=== PATIENT | female | born 1980 | race Hispanic/Latino ===

== ENCOUNTER 2017-10-21 17:38 | Inpatient (IN) | payer SELFPAY ==
[~2017-10-21] VITALS: Ht 160 cm; Wt 57.2 kg
[2017-10-21 18:08] LABS: BASOPHILS % (AUTO) 0.6 % (0.0-5.0); EOSINOPHILS % (AUTO) 0.4 % (0.0-8.0); HEMATOCRIT 27.7 % (36-48); MEAN CORPUSCULAR HEMOGLOBIN 19.1 pg (27.0-33.0); MEAN CORPUSCULAR HGB CONC 30.4 g/dL (32.0-36.0); MEAN CORPUSCULAR VOLUME 62.8 fL (79-99); MONOCYTES % (AUTO) 2.9 % (3.0-13.0); NEUTROPHILS % (AUTO) 84.1 % (40.0-77.0); PLATELET COUNT (AUTO) 587 K/uL (130-400); RED BLOOD CELL COUNT(AUTO) 4.41 MIL/uL (4.00-5.50); RED CELL DISTRIBUTION WIDTH 22.2 % (11.0-15.5)
[2017-10-21 18:29] LABS: APPEARANCE,URINE Cloudy (CLEAR); BILIRUBIN,URINE Negative (NEGATIVE); COLOR,URINE Yellow (YELLOW); GLUCOSE, URINE (UA) Negative (NEGATIVE); KETONES,URINE Negative (NEGATIVE); LEUKOCYTE ESTERASE ,URINE Moderate (NEGATIVE); NITRATE,URINE Negative (NEGATIVE); OCCULT BLOOD,URINE Small (NEGATIVE); PROTEIN,URINE POS 1+ (NEGATIVE); UROBILINOGEN,URINE 0.2 mg/dL (0.2-1.0)
[2017-10-21 18:34] LABS: ALANINE AMINOTRANSFERASE 31 U/L (12-78); ALBUMIN 3.9 g/dL (3.5-5.0); ASPARTATE AMINOTRANSFERASE 45 U/L (10-37); BILIRUBIN,TOTAL 0.3 mg/dL (0.2-1.0); CARBON DIOXIDE 11 mmol/L (21-32); CHLORIDE 108 mmol/L (101-111); CREATININE 1.4 mg/dL (0.5-1.5); GLOMERULAR FILTR. RATE CALC 45 mL/min (>60); GLUCOSE,RANDOM 193 mg/dL (70-105); SODIUM SERUM 138 mmol/L (136-145); TOTAL PROTEIN, SERUM 7.8 g/dL (6.0-8.3); UREA NITROGEN, BLOOD 14 mg/dL (7-18)
[2017-10-21 18:36] LABS: AMPHET/METH SCREEN,URINE NEGATIVE (NEGATIVE); BARBITURATE SCREEN, URINE NEGATIVE (NEGATIVE); BENZODIAZEPINES SCREEN,URINE NEGATIVE (NEGATIVE); CANNABINOID SCREEN,URINE NEGATIVE (NEGATIVE); COCAINE SCREEN,URINE NEGATIVE (NEGATIVE); OPIATE SCREEN,URINE NEGATIVE (NEGATIVE); PHENCYCLIDINE SCREEN,URINE NEGATIVE (NEGATIVE)
[2017-10-21 18:39] LABS: POTASSIUM < 1.5 mmol/L (3.5-5.1)
[2017-10-21 18:42] LABS: BACTERIA,URINE Many /HPF (None Seen); RBC,URINE 0-1 /HPF (0-1); SQUAMOUS EPITHELIAL CELL,UR 0-2 /LPF (0-2); TRANSITIONAL EPI CELLS,URINE Rare /LPF (None Seen)
[2017-10-21] MEDS ORDERED: POTASSIUM BICARB/CIT AC 25 MEQ TABLET.EFF ONE (18:42)
[2017-10-21] MEDS ORDERED: POTASSIUM CHLORIDE 20MEQ/100ML 100 ML IV ONE (18:43)
[2017-10-21] MEDS ORDERED: LIDOCAINE HCL-MPF 1% 2ML VIAL ONE (18:55)
[2017-10-21 21:37] VITALS: BP 129/88
[2017-10-21 23:56] VITALS: BP 141/85
[2017-10-22] MEDS ORDERED: ACETAMINOPHEN 325 MG TAB PO PRN (00:15)
[2017-10-22] MEDS ORDERED: HYDRALAZINE HCL 20 MG/ML VIAL IV PRN (00:15)
[2017-10-22] MEDS ORDERED: ONDANSETRON HCL 4 MG/2 ML VIAL IV PRN (00:15)
[2017-10-22 03:52] VITALS: BP 128/73
[2017-10-22 05:25] LABS: HEMATOCRIT 26.3 % (36-48); MEAN CORPUSCULAR HEMOGLOBIN 19.4 pg (27.0-33.0); MEAN CORPUSCULAR HGB CONC 30.9 g/dL (32.0-36.0); MEAN CORPUSCULAR VOLUME 62.7 fL (79-99); PLATELET COUNT (AUTO) 455 K/uL (130-400); RED CELL DISTRIBUTION WIDTH 22.5 % (11.0-15.5); WHITE BLOOD COUNT (AUTO) 13.8 K/uL (4.8-10.8)
[2017-10-22 05:43] LABS: ALBUMIN 3.5 g/dL (3.5-5.0); BILIRUBIN,TOTAL 0.3 mg/dL (0.2-1.0); CREATININE 1.1 mg/dL (0.5-1.5); THYROID STIMULATING HORMONE 0.17 uIU/mL (0.36-3.74); TOTAL PROTEIN, SERUM 6.9 g/dL (6.0-8.3)
[2017-10-22 05:54] LABS: POTASSIUM 1.6 mmol/L (3.5-5.1)
[2017-10-22 06:06] LABS: LYMPHOCYTES % (MANUAL) 18 % (22-44); MAN.DIFF COMMENT-IMPRESSION MANUAL DIFFERENTIAL; MONOCYTES % (MANUAL) 2 % (2-9); REACTIVE LYMPHOCYTES 1 % (0-0); SEGMENTED NEUTROPHILS % 79 % (40-70)
[2017-10-22 06:07] LABS: PLATELET MORPHOLOGY COMMENT SLIGHT INCREASED
[2017-10-22] MEDS: POTASSIUM CHLORIDE 20MEQ/100ML 100 ML IV PRN ×2 (06:56→12:24)
[2017-10-22 07:00] VITALS: BP 133/83
[2017-10-22] MEDS ORDERED: VANCOMYCIN 1GM+NS 250ML 250 ML IV SCH (09:00)
[2017-10-22] MEDS ORDERED: CEFTRIAXONE 1GM/D5W 50ML 50 ML IV SCH (09:00)
[2017-10-22] MEDS: FAMOTIDINE 20MG TAB 20 MG TAB PO SCH ×2 (10:08→21:13)
[2017-10-22] MEDS: SODIUM CHLORIDE 0.9% 1000ML 1,000 ML IV SCH ×2 (10:08→20:08)
[2017-10-22] MEDS: CEFTRIAXONE SODIUM 1 GM IVP SCH ×2 (10:09→21:13)
[2017-10-22] MEDS: ENOXAPARIN SODIUM 30 MG/0.3 ML SQ SCH (10:10)
[2017-10-22 11:00] VITALS: BP 139/88
[2017-10-22] MEDS: POTASSIUM CHLORIDE 20 MEQ ERTAB PO PRN ×4 (12:24→23:39)
[2017-10-22] MEDS: LIDOCAINE HCL-MPF 1% 2ML VIAL IVP PRN (12:25)
[2017-10-22 16:00] VITALS: BP 125/80
[2017-10-22 20:14] VITALS: BP 130/85
[2017-10-22] MEDS: POTASSIUM CHLORIDE 10% ELIXIR 20 MEQ/15 ML UDCUP PO PRN (21:35)
[2017-10-23 00:07] VITALS: BP 148/90
[2017-10-23] MEDS: POTASSIUM CHLORIDE 20 MEQ ERTAB PO PRN ×6 (02:31→16:19)
[2017-10-23 03:50] VITALS: BP 142/100
[2017-10-23 04:25] LABS: BASOPHILS % (AUTO) 0.6 % (0.0-5.0); EOSINOPHILS % (AUTO) 0.2 % (0.0-8.0); HEMATOCRIT 24.2 % (36-48); LYMPHOCYTES % (AUTO) 18.3 % (21.0-51.0); MEAN CORPUSCULAR HEMOGLOBIN 19.8 pg (27.0-33.0); MEAN CORPUSCULAR HGB CONC 31.8 g/dL (32.0-36.0); MEAN CORPUSCULAR VOLUME 62.3 fL (79-99); MONOCYTES % (AUTO) 3.7 % (3.0-13.0); NEUTROPHILS % (AUTO) 77.2 % (40.0-77.0); PLATELET COUNT (AUTO) 438 K/uL (130-400); RED BLOOD CELL COUNT(AUTO) 3.88 MIL/uL (4.00-5.50); RED CELL DISTRIBUTION WIDTH 22.3 % (11.0-15.5); WHITE BLOOD COUNT (AUTO) 10.3 K/uL (4.8-10.8)
[2017-10-23 04:42] LABS: ALBUMIN 2.9 g/dL (3.5-5.0); BILIRUBIN,TOTAL 0.2 mg/dL (0.2-1.0); CREATININE 0.7 mg/dL (0.5-1.5); MAGNESIUM 1.9 mg/dL (1.80-2.40); THYROID STIMULATING HORMONE 0.33 uIU/mL (0.36-3.74); TOTAL PROTEIN, SERUM 6.1 g/dL (6.0-8.3)
[2017-10-23 04:48] LABS: POTASSIUM 1.8 mmol/L (3.5-5.1)
[2017-10-23] MEDS: SODIUM CHLORIDE 0.9% 1000ML 1,000 ML IV SCH ×2 (06:08→16:08)
[2017-10-23 07:00] VITALS: BP 141/88
[2017-10-23] MEDS: FAMOTIDINE 20MG TAB 20 MG TAB PO SCH ×2 (08:54→21:10)
[2017-10-23] MEDS: CEFTRIAXONE SODIUM 1 GM IVP SCH ×2 (08:54→21:09)
[2017-10-23] MEDS: ENOXAPARIN SODIUM 30 MG/0.3 ML SQ SCH (09:02)
[2017-10-23] MEDS: LIDOCAINE HCL-MPF 1% 2ML VIAL IVP PRN ×2 (09:48→13:38)
[2017-10-23] MEDS: POTASSIUM CHLORIDE 20MEQ/100ML 100 ML IV PRN ×2 (09:48→13:38)
[2017-10-23 11:00] VITALS: BP 130/75
[2017-10-23 16:00] VITALS: BP 141/70
[2017-10-23 19:36] VITALS: BP 148/87
[2017-10-24] VITALS (7 sets, daily range): BP systolic 121–156; BP diastolic 82–97
[2017-10-24] MEDS: SODIUM CHLORIDE 0.9% 1000ML 1,000 ML IV SCH ×3 (02:08→23:37)
[2017-10-24 03:08] LABS: POTASSIUM,URINE RANDOM 20 mmol/L (25-125); SODIUM,URINE RANDOM 102 mmol/l (40-220)
[2017-10-24 03:16] LABS: AMPHET/METH SCREEN,URINE NEGATIVE (NEGATIVE); BARBITURATE SCREEN, URINE NEGATIVE (NEGATIVE); BENZODIAZEPINES SCREEN,URINE NEGATIVE (NEGATIVE); CANNABINOID SCREEN,URINE NEGATIVE (NEGATIVE); COCAINE SCREEN,URINE NEGATIVE (NEGATIVE); OPIATE SCREEN,URINE NEGATIVE (NEGATIVE); PHENCYCLIDINE SCREEN,URINE NEGATIVE (NEGATIVE)
[2017-10-24 04:34] LABS: CREATININE 0.8 mg/dL (0.5-1.5); MAGNESIUM 1.6 mg/dL (1.80-2.40)
[2017-10-24 04:37] LABS: POTASSIUM 1.9 mmol/L (3.5-5.1)
[2017-10-24] MEDS: POTASSIUM CHLORIDE 20 MEQ ERTAB PO PRN ×4 (05:23→15:29)
[2017-10-24] MEDS: CEFTRIAXONE SODIUM 1 GM IVP SCH ×2 (09:08→20:33)
[2017-10-24] MEDS: FERROUS SULFATE 325 MG TABLET.DR PO SCH ×2 (09:09→20:34)
[2017-10-24] MEDS: FAMOTIDINE 20MG TAB 20 MG TAB PO SCH ×2 (09:09→20:34)
[2017-10-24] MEDS: MULTIVITAMIN TABLET PO SCH (09:09)
[2017-10-24] MEDS: ENOXAPARIN SODIUM 30 MG/0.3 ML SQ SCH (09:10)
[2017-10-24] MEDS: POTASSIUM CHLORIDE 20MEQ/100ML 100 ML IV PRN ×2 (12:36→15:35)
[2017-10-24] MEDS: LIDOCAINE HCL-MPF 1% 2ML VIAL IVP PRN ×2 (12:37→15:28)
[2017-10-24] MEDS ORDERED: MAGNESIUM 2GM PREMIX 50ML 50 ML IV SCH (14:45)
[2017-10-24] MEDS: POTASSIUM BICARB/CIT AC 25 MEQ TABLET.EFF PO SCH ×2 (16:18→21:37)
[2017-10-25] VITALS (7 sets, daily range): BP systolic 119–135; BP diastolic 75–95
[2017-10-25 04:27] LABS: HEMATOCRIT 22.8 % (36-48); MEAN CORPUSCULAR HEMOGLOBIN 19.5 pg (27.0-33.0); MEAN CORPUSCULAR HGB CONC 31.6 g/dL (32.0-36.0); MEAN CORPUSCULAR VOLUME 61.7 fL (79-99); PLATELET COUNT (AUTO) 481 K/uL (130-400); RED CELL DISTRIBUTION WIDTH 22.6 % (11.0-15.5); WHITE BLOOD COUNT (AUTO) 8.9 K/uL (4.8-10.8)
[2017-10-25 04:51] LABS: LYMPHOCYTES % (MANUAL) 17 % (22-44); MONOCYTES % (MANUAL) 2 % (2-9); SEGMENTED NEUTROPHILS % 81 % (40-70)
[2017-10-25 04:52] LABS: MAN.DIFF COMMENT-IMPRESSION MANUAL DIFFERENTIAL
[2017-10-25 04:53] LABS: PLATELET MORPHOLOGY COMMENT INCREASED
[2017-10-25 04:55] LABS: ALBUMIN 2.9 g/dL (3.5-5.0); BILIRUBIN,TOTAL 0.2 mg/dL (0.2-1.0); CREATININE 0.7 mg/dL (0.5-1.5); TOTAL PROTEIN, SERUM 6.2 g/dL (6.0-8.3)
[2017-10-25 05:02] LABS: POTASSIUM 2.3 mmol/L (3.5-5.1)
[2017-10-25] MEDS: POTASSIUM CHLORIDE 20MEQ/100ML 100 ML IV PRN ×3 (05:17→10:15)
[2017-10-25] MEDS: LIDOCAINE HCL-MPF 1% 2ML VIAL IVP PRN ×3 (05:18→10:15)
[2017-10-25] MEDS: POTASSIUM CHLORIDE 20 MEQ ERTAB PO PRN ×3 (05:18→15:57)
[2017-10-25] MEDS: SODIUM CHLORIDE 0.9% 1000ML 1,000 ML IV SCH ×2 (08:08→18:08)
[2017-10-25] MEDS: FAMOTIDINE 20MG TAB 20 MG TAB PO SCH ×2 (10:15→20:56)
[2017-10-25] MEDS: MULTIVITAMIN TABLET PO SCH (10:15)
[2017-10-25] MEDS: POTASSIUM BICARB/CIT AC 25 MEQ TABLET.EFF PO SCH ×3 (10:15→20:56)
[2017-10-25] MEDS: FERROUS SULFATE 325 MG TABLET.DR PO SCH ×2 (10:15→20:56)
[2017-10-25] MEDS: POTASSIUM CHLORIDE 10% ELIXIR 20 MEQ/15 ML UDCUP PO PRN (10:16)
[2017-10-25] MEDS ORDERED: COMPOUND IV MISC 1 EACH IVSOLN MISC PRN (11:30)
[2017-10-25] MEDS: ENOXAPARIN SODIUM 30 MG/0.3 ML SQ SCH (11:34)
[2017-10-25] MEDS: CEFTRIAXONE SODIUM 1 GM IVP SCH ×2 (15:43→20:56)
[2017-10-25] MEDS: IRON SUCROSE COMPLEX 100 MG in SODIUM CHLORIDE 0.9% 50 ML IV SCH (15:44)
[2017-10-26] VITALS (7 sets, daily range): BP systolic 112–137; BP diastolic 52–95
[2017-10-26 05:01] LABS: BASOPHILS % (AUTO) 0.7 % (0.0-5.0); EOSINOPHILS % (AUTO) 1.3 % (0.0-8.0); HEMATOCRIT 21.2 % (36-48); LYMPHOCYTES % (AUTO) 21.2 % (21.0-51.0); MEAN CORPUSCULAR HEMOGLOBIN 20.4 pg (27.0-33.0); MEAN CORPUSCULAR VOLUME 63.9 fL (79-99); MONOCYTES % (AUTO) 3.8 % (3.0-13.0); PLATELET COUNT (AUTO) 416 K/uL (130-400); RED BLOOD CELL COUNT(AUTO) 3.32 MIL/uL (4.00-5.50); WHITE BLOOD COUNT (AUTO) 8.3 K/uL (4.8-10.8)
[2017-10-26 05:23] LABS: ALBUMIN 2.8 g/dL (3.5-5.0); BILIRUBIN,TOTAL 0.2 mg/dL (0.2-1.0); CREATININE 0.7 mg/dL (0.5-1.5); POTASSIUM 3.1 mmol/L (3.5-5.1); TOTAL PROTEIN, SERUM 6.1 g/dL (6.0-8.3)
[2017-10-26] MEDS: CEFTRIAXONE SODIUM 1 GM IVP SCH ×2 (11:49→20:16)
[2017-10-26] MEDS: POTASSIUM BICARB/CIT AC 25 MEQ TABLET.EFF PO SCH ×3 (11:50→20:16)
[2017-10-26] MEDS: POTASSIUM CHLORIDE 10% ELIXIR 20 MEQ/15 ML UDCUP PO PRN (11:50)
[2017-10-26] MEDS: MULTIVITAMIN TABLET PO SCH (11:50)
[2017-10-26] MEDS: FAMOTIDINE 20MG TAB 20 MG TAB PO SCH ×2 (11:50→20:16)
[2017-10-26] MEDS: ENOXAPARIN SODIUM 30 MG/0.3 ML SQ SCH (11:52)
[2017-10-26] MEDS: IRON SUCROSE COMPLEX 100 MG in SODIUM CHLORIDE 0.9% 50 ML IV SCH (12:24)
[2017-10-26] MEDS: SODIUM CHLORIDE 0.9% 1000ML 1,000 ML IV SCH ×2 (12:24→14:08)
[2017-10-26] MEDS: FERROUS SULFATE 325 MG TABLET.DR PO SCH ×2 (12:25→20:16)
[2017-10-26] MEDS ORDERED: SODIUM CHLORIDE 0.9% 250 ML IV ONE (14:06)
[2017-10-27] MEDS: SODIUM CHLORIDE 0.9% 1000ML 1,000 ML IV SCH ×3 (00:08→20:08)
[2017-10-27 03:30] VITALS: BP 118/81
[2017-10-27 04:51] LABS: BASOPHILS % (AUTO) 1.2 % (0.0-5.0); EOSINOPHILS % (AUTO) 1.5 % (0.0-8.0); HEMATOCRIT 29.1 % (36-48); LYMPHOCYTES % (AUTO) 41.9 % (21.0-51.0); MEAN CORPUSCULAR HEMOGLOBIN 20.5 pg (27.0-33.0); MEAN CORPUSCULAR HGB CONC 30.6 g/dL (32.0-36.0); MONOCYTES % (AUTO) 5.4 % (3.0-13.0); NUCLEATED RED BLOOD CELLS 0.3 % (0.0-0.19); PLATELET COUNT (AUTO) 485 K/uL (130-400); RED BLOOD CELL COUNT(AUTO) 4.35 MIL/uL (4.00-5.50); RED CELL DISTRIBUTION WIDTH 25.3 % (11.0-15.5); WHITE BLOOD COUNT (AUTO) 6.3 K/uL (4.8-10.8)
[2017-10-27 04:58] LABS: ALBUMIN 3.1 g/dL (3.5-5.0); BILIRUBIN,TOTAL 0.2 mg/dL (0.2-1.0); CREATININE 0.7 mg/dL (0.5-1.5); POTASSIUM 3.3 mmol/L (3.5-5.1); TOTAL PROTEIN, SERUM 6.6 g/dL (6.0-8.3)
[2017-10-27 08:00] VITALS: BP 119/66
[2017-10-27] MEDS: ENOXAPARIN SODIUM 30 MG/0.3 ML SQ SCH (10:01)
[2017-10-27] MEDS: FERROUS SULFATE 325 MG TABLET.DR PO SCH ×2 (10:01→20:27)
[2017-10-27] MEDS: CEFTRIAXONE SODIUM 1 GM IVP SCH ×2 (10:01→20:27)
[2017-10-27] MEDS: MULTIVITAMIN TABLET PO SCH (10:01)
[2017-10-27] MEDS: FAMOTIDINE 20MG TAB 20 MG TAB PO SCH ×2 (10:02→20:27)
[2017-10-27] MEDS: POTASSIUM BICARB/CIT AC 25 MEQ TABLET.EFF PO SCH ×3 (10:02→20:27)
[2017-10-27] MEDS: IRON SUCROSE COMPLEX 100 MG in SODIUM CHLORIDE 0.9% 50 ML IV SCH (10:42)
[2017-10-27 11:43] VITALS: BP 118/78
[2017-10-27 16:00] VITALS: BP 108/65
[2017-10-27 19:15] VITALS: BP 123/63
[2017-10-27 23:20] VITALS: BP 123/80
[2017-10-28 03:35] VITALS: BP 109/70
[2017-10-28] MEDS: SODIUM CHLORIDE 0.9% 1000ML 1,000 ML IV SCH (06:08)
[2017-10-28 08:00] VITALS: BP 106/61
[2017-10-28] MEDS ORDERED: POTASSIUM BICARBONATE PO (08:36)
[2017-10-28] MEDS ORDERED: MVIT PO (08:36)
[2017-10-28] MEDS ORDERED: CITRIC ACID PO (08:36)
[2017-10-28] MEDS ORDERED: FERR324T4 PO (08:36)
[2017-10-28] MEDS: ENOXAPARIN SODIUM 30 MG/0.3 ML SQ SCH (09:00)
[2017-10-28] MEDS: IRON SUCROSE COMPLEX 100 MG in SODIUM CHLORIDE 0.9% 50 ML IV SCH (10:11)
[2017-10-28] MEDS: FAMOTIDINE 20MG TAB 20 MG TAB PO SCH (10:12)
[2017-10-28] MEDS: MULTIVITAMIN TABLET PO SCH (10:12)
[2017-10-28] MEDS: CEFTRIAXONE SODIUM 1 GM IVP SCH (10:12)
[2017-10-28] MEDS: FERROUS SULFATE 325 MG TABLET.DR PO SCH (10:12)
[2017-10-28] MEDS: POTASSIUM BICARB/CIT AC 25 MEQ TABLET.EFF PO SCH ×2 (10:12→13:18)
[2017-10-28 12:26] VITALS: BP 116/41
== END 2017-10-28 14:00 | disposition home or self-care (01) | DRG 690 ==
LOC: EDH 17:38 → EDHIP 17:39 → 2AH 21:07 → 3DH 10-25 22:14
PROVIDERS: ADMIT Family Medicine; ATTEND Family Medicine
PROC: 30233N1 Transfusion of Nonautologous Red Blood Cells into Peripheral Vein, Percutaneous Approach (ICD-10-PCS; principal; 2017-10-22)
DX: N39.0 Urinary tract infection, site not specified (principal); E83.42 Hypomagnesemia; E87.2 Acidosis; D64.9 Anemia, unspecified; D72.829 Elevated white blood cell count, unspecified; E04.1 Nontoxic single thyroid nodule; E87.6 Hypokalemia; N20.0 Calculus of kidney; N25.89 Other disorders resulting from impaired renal tubular function; R63.4 Abnormal weight loss; Z91.19 Patient's noncompliance with other medical treatment and regimen
CPT/HCPCS: 36415; 36430; 70450; 74176; 76536; 76770; 80048; 80053; 80305; 81001; 82270; 82728; 83735; 83935; 84132; 84133; 84300; 84439; 84443; 84481; 84703; 85025; 85651; 86038; 86141; 86160; 86215; 86235; 86701; 86850; 86900; 86901; 86922; 87390; 93005; A4218; J0696; J1650; J1756; J3370; J3475; J3480; J3490; J7030; P9016

== ENCOUNTER 2019-07-29 16:18 | Inpatient (IN) | payer SELFPAY ==
[~2019-07-29] VITALS: Ht 167.6 cm; Wt 81.9 kg
[~2019-07-29 16:18] MED LIST: CITRIC ACID PO; FERR324T4 PO; MVIT PO; POTASSIUM BICARBONATE PO
[2019-07-29 17:06] LABS: BASOPHILS % (AUTO) 0.7 % (0.0-5.0); EOSINOPHILS % (AUTO) 0.3 % (0.0-8.0); HEMATOCRIT 38.4 % (36-48); LYMPHOCYTES % (AUTO) 15.8 % (21.0-51.0); MEAN CORPUSCULAR HEMOGLOBIN 22.9 pg (27.0-33.0); MEAN CORPUSCULAR HGB CONC 31.4 g/dL (32.0-36.0); MEAN CORPUSCULAR VOLUME 72.9 fL (79-99); MONOCYTES % (AUTO) 4.6 % (3.0-13.0); NEUTROPHILS % (AUTO) 78.6 % (40.0-77.0); NUCLEATED RED BLOOD CELLS 0.3 % (0.0-0.19); PLATELET COUNT (AUTO) 485 K/uL (130-400); RED BLOOD CELL COUNT(AUTO) 5.27 MIL/uL (4.00-5.50); RED CELL DISTRIBUTION WIDTH 19.1 % (11.0-15.5); WHITE BLOOD COUNT (AUTO) 10.3 K/uL (4.8-10.8)
[2019-07-29] MEDS ORDERED: IPRATROPIUM/ALBUTEROL SULFATE 3 ML SOLUTION IH ONE (17:06)
[2019-07-29 17:24] LABS: CREATININE 1.3 mg/dL (0.5-1.5); POTASSIUM 3.3 mmol/L (3.5-5.1)
[2019-07-29 17:38] LABS: BILIRUBIN,TOTAL 0.3 mg/dL (0.2-1.0); TOTAL PROTEIN, SERUM 8.4 g/dL (6.0-8.3)
[2019-07-29 17:39] LABS: RAPID GROUP A STREP NEGATIVE (NEGATIVE)
[2019-07-29 18:11] LABS: BASE EXCESS,VENOUS BLOOD GAS -16.8 (-2.0-3.0); HCO3,VENOUS BLOOD GAS 9.5 (21.0-28.0); PCO2,VENOUS BLOOD GAS 25 (32-45); PH,VENOUS BLOOD GAS 7.199 (7.350-7.450)
[2019-07-29] MEDS ORDERED: POTASSIUM CHLORIDE 10% ELIXIR 20 MEQ/15 ML UDCUP ONE (18:13)
[2019-07-29] MEDS ORDERED: SODIUM CHLORIDE 0.9% 1000ML 1,000 ML IV ONE ×2 (18:13→22:19)
[2019-07-29 18:31] LABS: APPEARANCE,URINE Cloudy (CLEAR); BILIRUBIN,URINE Negative (NEGATIVE); COLOR,URINE Yellow (YELLOW); GLUCOSE, URINE (UA) Negative (NEGATIVE); KETONES,URINE Negative (NEGATIVE); LEUKOCYTE ESTERASE ,URINE Moderate (NEGATIVE); NITRATE,URINE Negative (NEGATIVE); OCCULT BLOOD,URINE Trace (NEGATIVE); PH,URINE 6.5 (5.0-8.0); PROTEIN,URINE POS 2+ mg/dL (NEGATIVE); UROBILINOGEN,URINE 0.2 mg/dL (0.2-1.0)
[2019-07-29 18:41] LABS: HCG,QUAL RESULT NEGATIVE (NEGATIVE)
[2019-07-29 18:43] LABS: BACTERIA,URINE Moderate /HPF (None Seen); SQUAMOUS EPITHELIAL CELL,UR Moderate /HPF (0-2)
[2019-07-29 18:45] LABS: ABG BASE EXCESS -18.4 mmol/L (-2.0-3.0); ABG HCO3 5.4 mmol/L (21.0-28.0); ABG PCO2 < 17 mmHg (32-45)
[2019-07-29] MEDS: SODIUM CHLORIDE 0.9% 1000ML 1,000 ML IV SCH (20:45)
[2019-07-29] MEDS ORDERED: MAGNESIUM 2GM PREMIX 50ML 50 ML IV PRN (20:45)
[2019-07-29] MEDS: FAMOTIDINE/PF 20 MG/2 ML VIAL IV SCH (21:00)
[2019-07-29] MEDS: CEFTRIAXONE SODIUM 1 GM IVP SCH (21:45)
[2019-07-29] MEDS: IPRATROPIUM/ALBUTEROL SULFATE 3 ML SOLUTION IH SCH (21:52)
[2019-07-29 22:09] LABS: AMPHET/METH SCREEN,URINE NEGATIVE (NEGATIVE); BARBITURATE SCREEN, URINE NEGATIVE (NEGATIVE); BENZODIAZEPINES SCREEN,URINE NEGATIVE (NEGATIVE); CANNABINOID SCREEN,URINE NEGATIVE (NEGATIVE); COCAINE SCREEN,URINE NEGATIVE (NEGATIVE); OPIATE SCREEN,URINE NEGATIVE (NEGATIVE); PHENCYCLIDINE SCREEN,URINE NEGATIVE (NEGATIVE)
[2019-07-29] MEDS ORDERED: SODIUM CHLORIDE 0.9% 50 ML IV ONE (22:20)
[2019-07-29] MEDS ORDERED: CEFTRIAXONE SODIUM 1 GM ONE (22:20)
[2019-07-29 23:30] VITALS: BP 148/106
[2019-07-29] MEDS ORDERED: OMEP20TA25 PO (23:58)
[2019-07-29] MEDS ORDERED: POTA20TA82 PO (23:58)
[2019-07-29] MEDS ORDERED: AMIL5TAB8 PO (23:58)
--- NOTE | 2019-07-30 00:30 | NUR ---
paged [facility] about patient's tachycardia of 107 and blood pressure of 148/106. She ordered to elevate the head of the bed and place patient on 2 liters of oxygen via nasal cannula. She ordered a VQ scan to be done today in the morning as well (no specific time given). Called radiology and they said somebody will come and do it after 8 am.
[2019-07-30] MEDS: POTASSIUM CHLORIDE 20MEQ/100ML 100 ML IV PRN (00:39)
[2019-07-30] MEDS: LIDOCAINE HCL-MPF 1% 2ML VIAL IV PRN ×2 (00:39→04:02)
--- NOTE | 2019-07-30 01:00 | NUR ---
paged [facility] about patient's pulmonary consult. Spoke with Chester Lugo. Told him about patient's current shortness of breath on exertion, high blood pressure of 148/107 and heart rate of 107. He is aware of the patient. Says that Dr. Austin will see her this morning.
[2019-07-30] MEDS: IPRATROPIUM/ALBUTEROL SULFATE 3 ML SOLUTION IH SCH ×3 (01:20→10:21)
[2019-07-30] MEDS ORDERED: FLU VACC QS2019-20 36MOS UP/PF 60 MCG/0.5 ML ML IM ONE (01:45)
[2019-07-30 04:00] VITALS: BP 138/104
[2019-07-30 07:15] LABS: BASOPHILS % (AUTO) 0.9 % (0.0-5.0); EOSINOPHILS % (AUTO) 0.4 % (0.0-8.0); HEMATOCRIT 33.7 % (36-48); LYMPHOCYTES % (AUTO) 25.4 % (21.0-51.0); MEAN CORPUSCULAR HEMOGLOBIN 22.9 pg (27.0-33.0); MEAN CORPUSCULAR HGB CONC 31.6 g/dL (32.0-36.0); MEAN CORPUSCULAR VOLUME 72.4 fL (79-99); MONOCYTES % (AUTO) 5.7 % (3.0-13.0); NEUTROPHILS % (AUTO) 67.6 % (40.0-77.0); NUCLEATED RED BLOOD CELLS 0.1 % (0.0-0.19); PLATELET COUNT (AUTO) 428 K/uL (130-400); RED BLOOD CELL COUNT(AUTO) 4.65 MIL/uL (4.00-5.50); RED CELL DISTRIBUTION WIDTH 19.2 % (11.0-15.5); WHITE BLOOD COUNT (AUTO) 10.4 K/uL (4.8-10.8)
[2019-07-30 07:28] LABS: ALBUMIN 3.3 g/dL (3.5-5.0); BILIRUBIN,TOTAL 0.3 mg/dL (0.2-1.0); CREATININE 0.9 mg/dL (0.5-1.5); MAGNESIUM 1.8 mg/dL (1.80-2.40); POTASSIUM 3.3 mmol/L (3.5-5.1); TOTAL PROTEIN, SERUM 7.1 g/dL (6.0-8.3)
[2019-07-30 08:00] VITALS: BP 132/87
--- NOTE | 2019-07-30 08:10 | NUR ---
paged Dr. Montemayor twice for patient's critical level of carbon dioxide of 9. pending call back
[2019-07-30] MEDS: SODIUM CHLORIDE 0.9% 1000ML 1,000 ML IV SCH ×2 (10:05→23:25)
[2019-07-30 11:11] LABS: ABG HCO3 8.1 mmol/L (21.0-28.0); ABG PCO2 < 17 mmHg (32-45)
[2019-07-30] MEDS ORDERED: LIDOCAINE HCL-MPF 1% 2ML VIAL IV PRN (11:45)
[2019-07-30] MEDS ORDERED: POTASSIUM CHLORIDE 20MEQ/100ML 100 ML IV PRN (11:45)
[2019-07-30 12:00] VITALS: BP 137/87
[2019-07-30] MEDS: POTASSIUM CHLORIDE 10% ELIXIR 20 MEQ/15 ML UDCUP PO PRN (12:11)
[2019-07-30] MEDS: ENOXAPARIN SODIUM 30 MG/0.3 ML SQ SCH (12:12)
[2019-07-30] MEDS: ASPIRIN 81MG TAB.CHEW PO SCH (12:12)
[2019-07-30] MEDS: FAMOTIDINE/PF 20 MG/2 ML VIAL IV SCH ×2 (12:13→20:52)
[2019-07-30] MEDS: CEFTRIAXONE SODIUM 1 GM IVP SCH ×2 (12:13→22:21)
--- NOTE | 2019-07-30 13:44 | NUR ---
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 Addendum: 07/30/19 at 1346 by ROJELIO CHERY RN CM Amended: Links added.
--- NOTE | 2019-07-30 15:15 | NUR ---
Patient educated on order for fresh frozen plasma transfusion. Educated on side effects to monitor for and report any that arise. Patient verbalized understanding. AAOx3. Occasional tremors to legs. REports she drinks half of a 16 oz beer every night before bed. Pretransfusion vitals T97.8, R12, HR88, BP 144/73. Plasma transfusion began at 15:15 using pump at 500 mL/hr to 20g LFA. Patient denies pain, rash, shortness of breath, nausea or vomiting. Resting comfortably watching tv with occasional tremor to lower extremities. Padding to bilateral siderails, suction equipment in place. Bed low, locked, call myles within reach.
--- NOTE | 2019-07-30 15:20 | NUR ---
Transfusion at 500 mL of FFP to LFA. Patient denies pain, just sensation of coldness. Second blanket placed over patient and reminded that plasma is frozen therefore once enters circulation, will sense coldness. Patient verbalized understanding. 5 minute transfusion vitals T98.3, R12, HR82, BP 150/71. Bed low, locked. Call myles within reach.
[2019-07-30 16:00] VITALS: BP 141/89
[2019-07-30 20:00] VITALS: BP 140/86
[2019-07-30] MEDS: POTASSIUM BICARB/CIT AC 25 MEQ TABLET.EFF PO SCH (20:52)
[2019-07-31] VITALS (7 sets, daily range): BP systolic 122–138; BP diastolic 76–98
[2019-07-31 05:06] LABS: BASOPHILS % (AUTO) 1.2 % (0.0-5.0); EOSINOPHILS % (AUTO) 0.9 % (0.0-8.0); HEMATOCRIT 30.3 % (36-48); LYMPHOCYTES % (AUTO) 37.1 % (21.0-51.0); MEAN CORPUSCULAR HGB CONC 32.2 g/dL (32.0-36.0); MEAN CORPUSCULAR VOLUME 71.3 fL (79-99); MONOCYTES % (AUTO) 6.7 % (3.0-13.0); NEUTROPHILS % (AUTO) 54.1 % (40.0-77.0); PLATELET COUNT (AUTO) 410 K/uL (130-400); RED BLOOD CELL COUNT(AUTO) 4.25 MIL/uL (4.00-5.50); RED CELL DISTRIBUTION WIDTH 19.3 % (11.0-15.5); WHITE BLOOD COUNT (AUTO) 6.4 K/uL (4.8-10.8)
[2019-07-31 05:52] LABS: BILIRUBIN,TOTAL 0.2 mg/dL (0.2-1.0); CREATININE 0.8 mg/dL (0.5-1.5); TOTAL PROTEIN, SERUM 6.5 g/dL (6.0-8.3)
[2019-07-31 05:56] LABS: POTASSIUM 2.7 mmol/L (3.5-5.1)
[2019-07-31] MEDS: POTASSIUM CHLORIDE 20 MEQ ERTAB PO PRN ×3 (06:12→10:16)
--- NOTE | 2019-07-31 06:15 | NUR ---
paged Dr. Montemayor about patient's low potassium of 2.7 and magnesium of 1.8 to make him aware even though the patient is already on postassium protocol.
[2019-07-31] MEDS: POTASSIUM BICARB/CIT AC 25 MEQ TABLET.EFF PO SCH ×2 (10:15→20:23)
[2019-07-31] MEDS: ENOXAPARIN SODIUM 30 MG/0.3 ML SQ SCH (10:16)
[2019-07-31] MEDS: CEFTRIAXONE SODIUM 1 GM IVP SCH ×2 (10:16→22:01)
[2019-07-31] MEDS: ASPIRIN 81MG TAB.CHEW PO SCH (10:16)
[2019-07-31] MEDS: FAMOTIDINE/PF 20 MG/2 ML VIAL IV SCH ×2 (10:18→20:22)
[2019-07-31 17:35] LABS: CHLORIDE,URINE RANDOM 127 mmol/L (110-250); CREATININE,URINE RANDOM 92 mg/dL (30-135); POTASSIUM,URINE RANDOM 30 mmol/L (25-125); SODIUM,URINE RANDOM 96 mmol/l (40-220)
[2019-07-31] MEDS ORDERED: NAPROXEN 500 MG TABLET ONE (22:21)
[2019-08-01 03:33] VITALS: BP 116/70
[2019-08-01 05:48] LABS: BASOPHILS % (AUTO) 0.6 % (0.0-5.0); EOSINOPHILS % (AUTO) 1.4 % (0.0-8.0); HEMATOCRIT 30.1 % (36-48); LYMPHOCYTES % (AUTO) 33.2 % (21.0-51.0); MEAN CORPUSCULAR HEMOGLOBIN 23.5 pg (27.0-33.0); MEAN CORPUSCULAR HGB CONC 32.3 g/dL (32.0-36.0); MEAN CORPUSCULAR VOLUME 72.7 fL (79-99); MONOCYTES % (AUTO) 6.3 % (3.0-13.0); NEUTROPHILS % (AUTO) 58.5 % (40.0-77.0); PLATELET COUNT (AUTO) 374 K/uL (130-400); RED BLOOD CELL COUNT(AUTO) 4.14 MIL/uL (4.00-5.50); RED CELL DISTRIBUTION WIDTH 19.7 % (11.0-15.5); WHITE BLOOD COUNT (AUTO) 7.8 K/uL (4.8-10.8)
[2019-08-01 06:03] LABS: ALBUMIN 3.1 g/dL (3.5-5.0); BILIRUBIN,TOTAL 0.3 mg/dL (0.2-1.0); CREATININE 0.8 mg/dL (0.5-1.5); MAGNESIUM 1.8 mg/dL (1.80-2.40); TOTAL PROTEIN, SERUM 6.6 g/dL (6.0-8.3)
[2019-08-01 06:04] LABS: POTASSIUM 2.8 mmol/L (3.5-5.1)
[2019-08-01] MEDS: LIDOCAINE HCL-MPF 1% 2ML VIAL IV PRN ×2 (06:08→21:14)
[2019-08-01] MEDS: POTASSIUM CHLORIDE 20MEQ/100ML 100 ML IV PRN ×2 (06:09→21:14)
[2019-08-01] MEDS: POTASSIUM CHLORIDE 20 MEQ ERTAB PO PRN ×2 (06:31→10:27)
[2019-08-01 08:00] VITALS: BP 131/83
[2019-08-01] MEDS: ENOXAPARIN SODIUM 30 MG/0.3 ML SQ SCH (09:06)
[2019-08-01] MEDS: FAMOTIDINE/PF 20 MG/2 ML VIAL IV SCH ×2 (09:07→20:29)
[2019-08-01] MEDS: ASPIRIN 81MG TAB.CHEW PO SCH (09:07)
[2019-08-01] MEDS: CEFTRIAXONE SODIUM 1 GM IVP SCH ×2 (09:07→20:29)
[2019-08-01] MEDS: POTASSIUM BICARB/CIT AC 25 MEQ TABLET.EFF PO SCH ×3 (10:41→20:29)
[2019-08-01 11:23] VITALS: BP 130/92
[2019-08-01 15:41] VITALS: BP 119/88
[2019-08-01 19:00] VITALS: BP 110/59
[2019-08-01] MEDS ORDERED: AMILORIDE HCL 5 MG TABLET PO SCH (20:00)
--- NOTE | 2019-08-01 20:30 | NUR ---
MEDS SHIFT ASSESSMENT DONE, PLEASE REFER TO CHART. DUE MEDS ADMINISTERED, TOLERATED WELL. MAGNESIUM AND POTASSIUM REPLACEMENT CONTINUED. KEPT COMFORTABLE IN BED. CALL LIGHT WITHIN REACH. WILL MONITOR PT. Addendum: 08/01/19 at 2147 by BENITEZ TAYLOR RN RN Amended: Links added.
[2019-08-01] MEDS: POTASSIUM CHLORIDE 10% ELIXIR 20 MEQ/15 ML UDCUP PO PRN (22:42)
[2019-08-01] MEDS: NAPROXEN 250 MG TAB PO PRN (23:29)
[2019-08-02] VITALS: BP 133/81
[2019-08-02] MEDS: POTASSIUM CHLORIDE 10% ELIXIR 20 MEQ/15 ML UDCUP PO PRN (01:08)
--- NOTE | 2019-08-02 01:08 | NUR ---
DOSE AWAKENED PT FOR LAST PO DOSE OF POTASSIUM PER PROTOCOL. IV POTASSIUM STILL INFUSING. KEPT COMFORTABLE. CALL LIGHT WITHIN REACH. WILL MONITOR PT.
[2019-08-02 04:00] VITALS: BP 120/78
--- NOTE | 2019-08-02 05:26 | NUR ---
ROUNDS PT RESTING WELL, NO DISTRESS NOTED. NO CONCERNS VERBALIZED. KEPT COMFORTABLE. FOR MORE CARE.
[2019-08-02 05:43] LABS: BASOPHILS % (AUTO) 0.6 % (0.0-5.0); EOSINOPHILS % (AUTO) 1.9 % (0.0-8.0); LYMPHOCYTES % (AUTO) 36.4 % (21.0-51.0); MEAN CORPUSCULAR HEMOGLOBIN 23.1 pg (27.0-33.0); MEAN CORPUSCULAR HGB CONC 32.1 g/dL (32.0-36.0); MONOCYTES % (AUTO) 7.3 % (3.0-13.0); NEUTROPHILS % (AUTO) 53.8 % (40.0-77.0); NUCLEATED RED BLOOD CELLS 0.1 % (0.0-0.19); PLATELET COUNT (AUTO) 386 K/uL (130-400); RED BLOOD CELL COUNT(AUTO) 4.03 MIL/uL (4.00-5.50); RED CELL DISTRIBUTION WIDTH 20.1 % (11.0-15.5); WHITE BLOOD COUNT (AUTO) 7.3 K/uL (4.8-10.8)
[2019-08-02 06:21] LABS: ALBUMIN 2.9 g/dL (3.5-5.0); BILIRUBIN,TOTAL 0.3 mg/dL (0.2-1.0); CREATININE 0.7 mg/dL (0.5-1.5); MAGNESIUM 2.5 mg/dL (1.80-2.40); POTASSIUM 3.8 mmol/L (3.5-5.1); TOTAL PROTEIN, SERUM 6.3 g/dL (6.0-8.3)
[2019-08-02 07:00] VITALS: BP 124/68
[2019-08-02] MEDS: FAMOTIDINE/PF 20 MG/2 ML VIAL IV SCH (08:57)
[2019-08-02] MEDS: ASPIRIN 81MG TAB.CHEW PO SCH (08:58)
[2019-08-02] MEDS: POTASSIUM BICARB/CIT AC 25 MEQ TABLET.EFF PO SCH ×2 (08:58→14:33)
[2019-08-02] MEDS: NAPROXEN 250 MG TAB PO PRN (08:58)
[2019-08-02] MEDS: ENOXAPARIN SODIUM 30 MG/0.3 ML SQ SCH (08:58)
[2019-08-02] MEDS: CEFTRIAXONE SODIUM 1 GM IVP SCH (08:59)
[2019-08-02 12:00] VITALS: BP 125/79
[2019-08-02] MEDS ORDERED: CITRIC ACID PO (13:58)
[2019-08-02] MEDS ORDERED: POTASSIUM BICARBONATE PO (13:58)
[2019-08-02] MEDS ORDERED: AMIL5TAB8 PO (13:58)
== END 2019-08-02 17:10 | disposition home or self-care (01) | DRG 698 ==
LOC: EDH 16:18 → EDHIP 16:19 → OBSVTOIN 16:19 → 3CH 23:52
PROVIDERS: ADMIT Internal Medicine; ATTEND Internal Medicine
DX: N25.89 Other disorders resulting from impaired renal tubular function (principal); J96.00 Acute respiratory failure, unspecified whether with hypoxia or hypercapnia; E87.4 Mixed disorder of acid-base balance; N39.0 Urinary tract infection, site not specified; E87.6 Hypokalemia; N20.0 Calculus of kidney; E83.42 Hypomagnesemia; J00 Acute nasopharyngitis [common cold]; N18.9 Chronic kidney disease, unspecified; Z91.19 Patient's noncompliance with other medical treatment and regimen; Z23 Encounter for immunization; Z91.14 Patient's other noncompliance with medication regimen
CPT/HCPCS: 36415; 36600; 71046; 76770; 80051; 80053; 80305; 81001; 81025; 82010; 82306; 82435; 82570; 82803; 82947; 83605; 83735; 84132; 84295; 85018; 85025; 85378; 87804; 87880; 94640; 94664; G0008; G0378; J0696; J1650; J3475; J3480; J3490; J7030

== ENCOUNTER 2022-07-15 22:18 | Inpatient (IN) | payer OTHER ==
[~2022-07-15] VITALS: Ht 160 cm; Wt 81.4 kg
[~2022-07-15 22:18] MED LIST changes: +AMIL5TAB8 PO; -FERR324T4 PO; -MVIT PO; +OMEP20TA20 PO
[2022-07-15] MEDS ORDERED: 0.9%NACL 1000ML 1,000 ML IV SCH (23:30)
[2022-07-15 23:45] LABS: BASOPHILS % (AUTO) 0.3 % (0.0-5.0); EOSINOPHILS % (AUTO) 0.1 % (0.0-8.0); HEMATOCRIT 45.4 % (36-48); LYMPHOCYTES % (AUTO) 2.5 % (21.0-51.0); MEAN CORPUSCULAR HEMOGLOBIN 29.2 pg (27.0-33.0); MEAN CORPUSCULAR HGB CONC 32.6 g/dL (32.0-36.0); MEAN CORPUSCULAR VOLUME 89.7 fL (79-99); MONOCYTES % (AUTO) 4.9 % (3.0-13.0); NEUTROPHILS % (AUTO) 90.4 % (40.0-77.0); PLATELET COUNT (AUTO) 272 K/uL (130-400); RED BLOOD CELL COUNT(AUTO) 5.06 MIL/uL (4.00-5.50); RED CELL DISTRIBUTION WIDTH 14.2 % (11.0-15.5)
[2022-07-15 23:47] LABS: APPEARANCE,URINE CLOUDY (CLEAR); BILIRUBIN,URINE 0.5 mg/dL (NEGATIVE); COLOR,URINE YELLOW (YELLOW); GLUCOSE, URINE (UA) NEGATIVE (NEGATIVE); KETONES,URINE NEGATIVE (NEGATIVE); LEUKOCYTE ESTERASE ,URINE 500 Leu/uL (NEGATIVE); NITRATE,URINE NEGATIVE (NEGATIVE); OCCULT BLOOD,URINE MODERATE (NEGATIVE); PH,URINE 6.5 (5.0-8.0); PROTEIN,URINE 200 mg/dL (NEGATIVE); UROBILINOGEN,URINE 3 mg/dL (0.2-1.0)
[2022-07-15] MEDS ORDERED: ONDANSETRON 4MG INJ ONE (23:57)
[2022-07-16] VITALS (7 sets, daily range): BP systolic 107–140; BP diastolic 63–91
[2022-07-16] LABS: CREATININE 1.2 mg/dL (0.5-1.5); POTASSIUM 4.2 mmol/L (3.5-5.1)
[2022-07-16] MEDS ORDERED: ONDANSETRON 4MG INJ IVP ONE
[2022-07-16 00:03] LABS: BACTERIA,URINE MOD /HPF (None Seen); MUCUS,URINE RARE LPF (None Seen); RBC,URINE TNTC /HPF (0-1); SQUAMOUS EPITHELIAL CELL,UR MOD /HPF (0-2); WBC,URINE TNTC /HPF (0-1)
[2022-07-16 00:04] LABS: ALBUMIN 3.7 g/dL (3.5-5.0); TOTAL PROTEIN, SERUM 8.4 g/dL (6.0-8.3)
[2022-07-16 00:05] LABS: HCG,QUALITATIVE URINE NEGATIVE (NEGATIVE)
[2022-07-16] MEDS ORDERED: LACTATED RINGERS 1000ML 1,572 ML IV ONE (00:30)
[2022-07-16] MEDS: PHENAZOPYRIDINE HCL 200 MG TABLET PO SCH ×3 (00:30→17:02)
[2022-07-16] MEDS ORDERED: 0.9%NACL 1000ML 2,000 ML IV ONE (00:30)
[2022-07-16] MEDS ORDERED: ONDANSETRON 4MG INJ IV PRN (00:30)
[2022-07-16] MEDS ORDERED: ZOSYN 3.375GM +NS 50ML IV ONE (00:30)
[2022-07-16] MEDS ORDERED: IOHEXOL 350 MG/ML 100ML INFUS..BTL IV ONE (00:41)
[2022-07-16 00:52] LABS: LYMPHOCYTES % (MANUAL) 6 % (22-44); MONOCYTES % (MANUAL) 1 % (2-9); SEGMENTED NEUTROPHILS % 93 % (40-70)
[2022-07-16 00:53] LABS: MAN.DIFF COMMENT-IMPRESSION MANUAL DIF; PLATELET MORPHOLOGY COMMENT ADEQUATE
[2022-07-16] MEDS: MORPHINE 4 MG SYG IV PRN ×2 (01:02→22:33)
[2022-07-16] MEDS: ACETAMINOPHEN 325 MG TAB PO PRN ×2 (03:19→22:48)
[2022-07-16] MEDS: MORPHINE 2 MG SYG IV PRN ×3 (03:50→17:40)
[2022-07-16 05:00] LABS: BASOPHILS % (AUTO) 0.3 % (0.0-5.0); EOSINOPHILS % (AUTO) 0.3 % (0.0-8.0); HEMATOCRIT 37.2 % (36-48); LYMPHOCYTES % (AUTO) 4.3 % (21.0-51.0); MEAN CORPUSCULAR HGB CONC 32.8 g/dL (32.0-36.0); MEAN CORPUSCULAR VOLUME 88.4 fL (79-99); MONOCYTES % (AUTO) 5.7 % (3.0-13.0); NEUTROPHILS % (AUTO) 88.2 % (40.0-77.0); PLATELET COUNT (AUTO) 206 K/uL (130-400); RED BLOOD CELL COUNT(AUTO) 4.21 MIL/uL (4.00-5.50); RED CELL DISTRIBUTION WIDTH 14.2 % (11.0-15.5)
[2022-07-16 05:15] LABS: CREATININE 1.2 mg/dL (0.5-1.5); MAGNESIUM 1.5 mg/dL (1.80-2.40); PHOSPHORUS 2.4 mg/dL (2.5-4.9)
[2022-07-16 06:45] LABS: POTASSIUM 2.7 mmol/L (3.5-5.1)
[2022-07-16 06:49] LABS: WHITE BLOOD COUNT (AUTO) 30.3 K/uL (4.8-10.8)
[2022-07-16] MEDS: MAGNESIUM 2GM PREMIX 50ML 50 ML IV SCH (08:43)
[2022-07-16] MEDS: POTASSIUM CHLORIDE 10MEQ SR TAB PO SCH (08:43)
[2022-07-16] MEDS: FAMOTIDINE 20MG VIAL IV SCH ×2 (08:44→21:55)
[2022-07-16] MEDS: ZOSYN 3.375GM +NS 50ML IV SCH ×2 (08:44→17:02)
[2022-07-16] MEDS: ENOXAPARIN SODIUM 40 MG/0.4 ML SYRINGE SQ SCH (08:45)
[2022-07-16] MEDS: KETOROLAC 15MG/ML VIAL (15MG/ML) IV PRN (14:49)
[2022-07-16] MEDS ORDERED: LIDOCAINE HCL-MPF 1% 2ML VIAL IV PRN (22:00)
[2022-07-16] MEDS: POTASSIUM CHLORIDE 10% ELIXIR 20 MEQ/15 ML UDCUP PO PRN (22:33)
[2022-07-17] MEDS: POTASSIUM CHLORIDE 10% ELIXIR 20 MEQ/15 ML UDCUP PO PRN ×2 (00:35→06:44)
[2022-07-17] MEDS: ZOSYN 3.375GM +NS 50ML IV SCH ×3 (00:38→16:06)
[2022-07-17] MEDS: PHENAZOPYRIDINE HCL 200 MG TABLET PO SCH (00:38)
[2022-07-17 04:18] LABS: BASOPHILS % (AUTO) 0.2 % (0.0-5.0); EOSINOPHILS % (AUTO) 0.1 % (0.0-8.0); LYMPHOCYTES % (AUTO) 5.4 % (21.0-51.0); MEAN CORPUSCULAR HEMOGLOBIN 28.4 pg (27.0-33.0); MEAN CORPUSCULAR HGB CONC 31.9 g/dL (32.0-36.0); MEAN CORPUSCULAR VOLUME 89.2 fL (79-99); MONOCYTES % (AUTO) 5.8 % (3.0-13.0); NEUTROPHILS % (AUTO) 87.6 % (40.0-77.0); PLATELET COUNT (AUTO) 183 K/uL (130-400); RED BLOOD CELL COUNT(AUTO) 4.15 MIL/uL (4.00-5.50); RED CELL DISTRIBUTION WIDTH 14.1 % (11.0-15.5); WHITE BLOOD COUNT (AUTO) 24.5 K/uL (4.8-10.8)
[2022-07-17 04:29] VITALS: BP 101/67
[2022-07-17 04:41] LABS: CREATININE 1.2 mg/dL (0.5-1.5); POTASSIUM 3.5 mmol/L (3.5-5.1)
[2022-07-17] MEDS: POTASSIUM CHLORIDE 10MEQ SR TAB PO SCH (05:32)
[2022-07-17 06:36] LABS: MAGNESIUM 2.1 mg/dL (1.80-2.40)
[2022-07-17] MEDS: MORPHINE 4 MG SYG IV PRN (06:59)
[2022-07-17 08:17] VITALS: BP 125/82
[2022-07-17] MEDS: FAMOTIDINE 20MG VIAL IV SCH ×2 (08:51→21:01)
[2022-07-17] MEDS: AMILORIDE 5MG TAB PO SCH (08:51)
[2022-07-17] MEDS: ENOXAPARIN SODIUM 40 MG/0.4 ML SYRINGE SQ SCH (08:52)
[2022-07-17 11:33] VITALS: BP 115/79
[2022-07-17] MEDS: KETOROLAC 15MG/ML VIAL (15MG/ML) IV PRN ×2 (14:00→22:18)
[2022-07-17 16:06] VITALS: BP 113/71
[2022-07-17 20:49] VITALS: BP 150/100
[2022-07-18 00:21] VITALS: BP 130/87
[2022-07-18] MEDS: ZOSYN 3.375GM +NS 50ML IV SCH ×2 (01:02→09:39)
[2022-07-18] MEDS: MORPHINE 2 MG SYG IV PRN (01:06)
[2022-07-18 03:45] VITALS: BP 111/78
[2022-07-18 07:30] VITALS: BP 118/78
[2022-07-18 07:33] LABS: HEMATOCRIT 40.3 % (36-48); MEAN CORPUSCULAR HEMOGLOBIN 28.7 pg (27.0-33.0); MEAN CORPUSCULAR HGB CONC 32.3 g/dL (32.0-36.0); PLATELET COUNT (AUTO) 224 K/uL (130-400); RED BLOOD CELL COUNT(AUTO) 4.53 MIL/uL (4.00-5.50); WHITE BLOOD COUNT (AUTO) 14.2 K/uL (4.8-10.8)
[2022-07-18 07:45] LABS: CREATININE 1.2 mg/dL (0.5-1.5); MAGNESIUM 1.9 mg/dL (1.80-2.40)
[2022-07-18 07:46] LABS: POTASSIUM 2.9 mmol/L (3.5-5.1)
[2022-07-18 08:02] LABS: BASOPHILS % (AUTO) 0.4 % (0.0-5.0); EOSINOPHILS % (AUTO) 0.3 % (0.0-8.0); LYMPHOCYTES % (AUTO) 7.2 % (21.0-51.0); MONOCYTES % (AUTO) 4.1 % (3.0-13.0); NEUTROPHILS % (AUTO) 87.4 % (40.0-77.0)
[2022-07-18] MEDS: FAMOTIDINE 20MG VIAL IV SCH (09:40)
[2022-07-18] MEDS: ENOXAPARIN SODIUM 40 MG/0.4 ML SYRINGE SQ SCH (09:45)
[2022-07-18] MEDS: KETOROLAC 15MG/ML VIAL (15MG/ML) IV PRN (09:47)
[2022-07-18] MEDS: AMILORIDE 5MG TAB PO SCH (10:33)
[2022-07-18] MEDS: MAGNESIUM 2GM PREMIX 50ML 50 ML IV SCH (10:33)
[2022-07-18] MEDS: KCL 20 MEQ ERTAB PO PRN ×5 (10:34→16:56)
[2022-07-18 10:45] LABS: AMYLASE 31 U/L (25-115); LIPASE 89 U/L (114-286)
[2022-07-18 11:30] VITALS: BP 118/75
[2022-07-18] MEDS ORDERED: MAG/ALUM/SIMETH 30 ML UDCUP PO PRN (13:00)
[2022-07-18] MEDS ORDERED: CEFU500T67 PO (15:51)
[2022-07-18] MEDS ORDERED: DICY20TA3 PO (15:53)
[2022-07-18 16:00] VITALS: BP 141/86
== END 2022-07-18 17:15 | disposition home or self-care (01) | DRG 872 ==
LOC: EDH 22:18 → EDHIP 22:19 → 4BH 07-16 03:35
PROVIDERS: ADMIT Internal Medicine; ATTEND Internal Medicine
DX: A41.51 Sepsis due to Escherichia coli [E. coli] (principal); N39.0 Urinary tract infection, site not specified; Z20.822 Contact with and (suspected) exposure to COVID-19; E87.6 Hypokalemia; E86.0 Dehydration
CPT/HCPCS: 36415; 71045; 74177; 80048; 80053; 81001; 81025; 82150; 83605; 83690; 83735; 84100; 84132; 84145; 84484; 85025; 86677; 87040; 87077; 87088; 87186; 87635; 87804; 93005; C9803; G0378; J1650; J1885; J2270; J2405; J2543; J3475; J3490; J7030; J7120; Q9967

== ENCOUNTER 2023-07-17 17:04 | Inpatient (IN) | payer OTHER ==
[~2023-07-17] VITALS: Ht 160 cm; Wt 70.7 kg
[~2023-07-17 17:04] MED LIST changes: +CEFU500T67 PO; +DICY20TA3 PO
[2023-07-17 17:52] LABS: BASOPHILS # (AUTO) 0.07 K/uL (0.00-0.20); BASOPHILS % (AUTO) 0.6 % (0.0-5.0); EOSINOPHILS # (AUTO) 0.06 K/uL (0.00-0.70); EOSINOPHILS % (AUTO) 0.5 % (0.0-8.0); IMMATURE GRANULOCYTE ABSOLUTE 0.05 K/uL (0-1); LYMPHOCYTES # (AUTO) 1.4 K/uL (1.0-4.8); LYMPHOCYTES % (AUTO) 12.6 % (21.0-51.0); MEAN CORPUSCULAR HEMOGLOBIN 15.9 pg (27.0-33.0); MEAN CORPUSCULAR HGB CONC 25.2 g/dL (32.0-36.0); MEAN CORPUSCULAR VOLUME 63.1 fL (79-99); MONOCYTES # (AUTO) 0.5 K/uL (0.1-1.0); MONOCYTES % (AUTO) 4.5 % (3.0-13.0); NEUTROPHILS # (AUTO) 9.1 K/uL (1.8-7.7); NEUTROPHILS % (AUTO) 81.4 % (40.0-77.0); NUCLEATED RED BLOOD CELLS 0.8 % (0.0-0.19); PLATELET COUNT (AUTO) 506 K/uL (130-400); RED BLOOD CELL COUNT(AUTO) 3.33 MIL/uL (4.00-5.50); RED CELL DISTRIBUTION WIDTH 24.1 % (11.0-15.5); WHITE BLOOD COUNT (AUTO) 11.2 K/uL (4.8-10.8)
[2023-07-17 18:12] LABS: ALBUMIN 3.6 g/dL (3.5-5.0); BILIRUBIN,TOTAL 0.3 mg/dL (0.2-1.0); CREATININE 1.6 mg/dL (0.5-1.5); TOTAL PROTEIN, SERUM 8.2 g/dL (6.0-8.3)
[2023-07-17 18:17] LABS: POTASSIUM 2.5 mmol/L (3.5-5.1)
[2023-07-17 20:51] LABS: APPEARANCE,URINE CLOUDY (CLEAR); BILIRUBIN,URINE NEGATIVE (NEGATIVE); COLOR,URINE LIGHT-YELLOW (YELLOW); GLUCOSE, URINE (UA) NEGATIVE (NEGATIVE); KETONES,URINE NEGATIVE (NEGATIVE); LEUKOCYTE ESTERASE ,URINE 500 Leu/uL (NEGATIVE); NITRATE,URINE NEGATIVE (NEGATIVE); OCCULT BLOOD,URINE NEGATIVE (NEGATIVE); PH,URINE 6.5 (5.0-8.0); PROTEIN,URINE 30 mg/dL (NEGATIVE); UROBILINOGEN,URINE 0.2 mg/dL (0.2-1.0)
[2023-07-17 20:52] LABS: ADD UA MICROSCOPIC YES
[2023-07-17 20:55] LABS: BACTERIA,URINE RARE /HPF (None Seen); MUCUS,URINE RARE LPF (None Seen); SQUAMOUS EPITHELIAL CELL,UR MANY /HPF (0-2); WBC,URINE 26-50 /HPF (0-1)
[2023-07-17 20:58] LABS: HCG,QUALITATIVE URINE NEGATIVE (NEGATIVE)
[2023-07-17 20:59] LABS: AMPHET/METH SCREEN,URINE NEGATIVE (NEGATIVE); BARBITURATE SCREEN, URINE NEGATIVE (NEGATIVE); BENZODIAZEPINES SCREEN,URINE NEGATIVE (NEGATIVE); CANNABINOID SCREEN,URINE NEGATIVE (NEGATIVE); COCAINE SCREEN,URINE NEGATIVE (NEGATIVE); OPIATE SCREEN,URINE NEGATIVE (NEGATIVE); PHENCYCLIDINE SCREEN,URINE NEGATIVE (NEGATIVE)
[2023-07-17] MEDS ORDERED: CEFTRIAXONE 2GM VIAL IVPB ONE (21:30)
[2023-07-17] MEDS ORDERED: POTASSIUM BICARB/CIT AC 25 MEQ TABLET.EFF PO ONE (21:30)
[2023-07-17] MEDS ORDERED: PANTOPRAZOLE 40 MG/VIAL IVP ONE (23:00)
[2023-07-18 02:22] LABS: BASOPHILS # (AUTO) 0.05 K/uL (0.00-0.20); BASOPHILS % (AUTO) 0.5 % (0.0-5.0); EOSINOPHILS # (AUTO) 0.08 K/uL (0.00-0.70); EOSINOPHILS % (AUTO) 0.9 % (0.0-8.0); HEMATOCRIT 24.8 % (36-48); IMMATURE GRANULOCYTE ABSOLUTE 0.03 K/uL (0-1); LYMPHOCYTES # (AUTO) 1.8 K/uL (1.0-4.8); MEAN CORPUSCULAR HEMOGLOBIN 18.4 pg (27.0-33.0); MEAN CORPUSCULAR HGB CONC 27.4 g/dL (32.0-36.0); MONOCYTES # (AUTO) 0.4 K/uL (0.1-1.0); MONOCYTES % (AUTO) 4.1 % (3.0-13.0); NEUTROPHILS % (AUTO) 75.2 % (40.0-77.0); NUCLEATED RED BLOOD CELLS 0.9 % (0.0-0.19); PLATELET COUNT (AUTO) 421 K/uL (130-400); RED CELL DISTRIBUTION WIDTH 26.8 % (11.0-15.5); WHITE BLOOD COUNT (AUTO) 9.3 K/uL (4.8-10.8)
[2023-07-18] MEDS ORDERED: ONDANSETRON 4MG INJ IV PRN (02:30)
[2023-07-18] MEDS ORDERED: ACETAMINOPHEN 325 MG TAB PO PRN ×2 (02:30)
[2023-07-18 02:38] LABS: ALBUMIN 3.1 g/dL (3.5-5.0); BILIRUBIN,TOTAL 1.2 mg/dL (0.2-1.0); CREATININE 1.2 mg/dL (0.5-1.5); TOTAL PROTEIN, SERUM 7.2 g/dL (6.0-8.3)
[2023-07-18 02:49] LABS: POTASSIUM 2.6 mmol/L (3.5-5.1)
[2023-07-18] MEDS ORDERED: POTASSIUM CHLORIDE 20MEQ/100ML 100 ML IV PRN ×2 (03:00)
[2023-07-18] MEDS ORDERED: MAGNESIUM 2GM PREMIX 50ML 50 ML IV PRN (03:00)
[2023-07-18] MEDS: KCL 20 MEQ ERTAB PO PRN ×4 (03:57→17:05)
[2023-07-18 07:42] LABS: BASOPHILS # (AUTO) 0.05 K/uL (0.00-0.20); BASOPHILS % (AUTO) 0.6 % (0.0-5.0); EOSINOPHILS # (AUTO) 0.14 K/uL (0.00-0.70); EOSINOPHILS % (AUTO) 1.7 % (0.0-8.0); HEMATOCRIT 28.9 % (36-48); IMMATURE GRANULOCYTE ABSOLUTE 0.03 K/uL (0-1); LYMPHOCYTES # (AUTO) 2.2 K/uL (1.0-4.8); LYMPHOCYTES % (AUTO) 26.7 % (21.0-51.0); MEAN CORPUSCULAR HEMOGLOBIN 19.9 pg (27.0-33.0); MEAN CORPUSCULAR HGB CONC 28.7 g/dL (32.0-36.0); MEAN CORPUSCULAR VOLUME 69.3 fL (79-99); MONOCYTES # (AUTO) 0.5 K/uL (0.1-1.0); MONOCYTES % (AUTO) 5.5 % (3.0-13.0); NEUTROPHILS # (AUTO) 5.5 K/uL (1.8-7.7); NEUTROPHILS % (AUTO) 65.1 % (40.0-77.0); NUCLEATED RED BLOOD CELLS 1.1 % (0.0-0.19); PLATELET COUNT (AUTO) 403 K/uL (130-400); RED BLOOD CELL COUNT(AUTO) 4.17 MIL/uL (4.00-5.50); WHITE BLOOD COUNT (AUTO) 8.4 K/uL (4.8-10.8)
[2023-07-18 08:04] LABS: % IRON SATURATION 92.3 % (22-44)
[2023-07-18 08:11] LABS: ALBUMIN 3.1 g/dL (3.5-5.0); BILIRUBIN,TOTAL 0.8 mg/dL (0.2-1.0); CREATININE 1.2 mg/dL (0.5-1.5); MAGNESIUM 2.8 mg/dL (1.80-2.40); TOTAL PROTEIN, SERUM 7.2 g/dL (6.0-8.3)
[2023-07-18 10:38] LABS: INR 0.94 (0.85-1.15)
[2023-07-18 10:40] LABS: PARTIAL THROMBOPLASTIN TIME 27.9 SEC (26.3-35.5)
[2023-07-18] MEDS: AMILORIDE 5MG TAB PO SCH (10:43)
[2023-07-18] MEDS: PANTOPRAZOLE 40 MG/VIAL IVP SCH ×2 (10:43→20:40)
[2023-07-18] MEDS: CEFTRIAXONE 1G VIAL IVPB SCH ×2 (10:43→20:40)
[2023-07-18 12:00] VITALS: BP 128/86; PULSE 75; RESP 18
[2023-07-18 12:10] LABS: MAGNESIUM 2.8 mg/dL (1.80-2.40)
[2023-07-18 16:00] VITALS: BP 118/71; PULSE 71; RESP 20
[2023-07-18 16:56] LABS: AMPHET/METH SCREEN,URINE NEGATIVE (NEGATIVE); BARBITURATE SCREEN, URINE NEGATIVE (NEGATIVE); BENZODIAZEPINES SCREEN,URINE NEGATIVE (NEGATIVE); CANNABINOID SCREEN,URINE NEGATIVE (NEGATIVE); CHLORIDE,URINE RANDOM 100 mmol/L (110-250); COCAINE SCREEN,URINE NEGATIVE (NEGATIVE); CREATININE,URINE RANDOM 76 mg/dL (30-135); OPIATE SCREEN,URINE NEGATIVE (NEGATIVE); PHENCYCLIDINE SCREEN,URINE NEGATIVE (NEGATIVE); POTASSIUM,URINE RANDOM 13 mmol/L (25-125); SODIUM,URINE RANDOM 109 mmol/l (40-220)
[2023-07-18 20:00] VITALS: BP 120/82; PULSE 76; RESP 18; O2SAT 100
[2023-07-19] VITALS (22 sets, daily range): BP systolic 106–133; BP diastolic 55–91; PULSE 64–86; RESP 14–18; O2SAT 95–100
[2023-07-19 06:05] LABS: HEMATOCRIT 27.8 % (36-48); MEAN CORPUSCULAR HEMOGLOBIN 19.8 pg (27.0-33.0); MEAN CORPUSCULAR HGB CONC 28.4 g/dL (32.0-36.0); MEAN CORPUSCULAR VOLUME 69.7 fL (79-99); NUCLEATED RED BLOOD CELLS 0.5 % (0.0-0.19); RED BLOOD CELL COUNT(AUTO) 3.99 MIL/uL (4.00-5.50); RED CELL DISTRIBUTION WIDTH 25.4 % (11.0-15.5); WHITE BLOOD COUNT (AUTO) 8.9 K/uL (4.8-10.8)
[2023-07-19 06:27] LABS: ALBUMIN 2.9 g/dL (3.5-5.0); BILIRUBIN,TOTAL 0.4 mg/dL (0.2-1.0); MAGNESIUM 2.1 mg/dL (1.80-2.40); POTASSIUM 3.9 mmol/L (3.5-5.1)
[2023-07-19] MEDS: CEFTRIAXONE 1G VIAL IVPB SCH ×2 (09:00→20:42)
[2023-07-19] MEDS ORDERED: IRON SUCROSE COMPLEX 300 MG in 0.9% NACL 250ML 250 ML IV SCH (09:00)
[2023-07-19] MEDS: AMILORIDE 5MG TAB PO SCH (09:00)
[2023-07-19] MEDS: PANTOPRAZOLE 40 MG/VIAL IVP SCH ×2 (09:01→20:42)
[2023-07-19] MEDS ORDERED: COMPOUND IV MISC 1 EACH IVSOLN MISC PRN (09:30)
[2023-07-19] MEDS ORDERED: PROPOFOL 10 MG/ML 20ML VIAL IV ONE (12:31)
[2023-07-19] MEDS ORDERED: PEG 3350/NA SULF,BICARB,CL/KCL 4000 ML SOLN PO ONE (16:00)
[2023-07-19] MEDS ORDERED: SODIUM BICARBONATE 650 MG TAB PO PRN (22:00)
[2023-07-20] VITALS (16 sets, daily range): BP systolic 114–150; BP diastolic 66–89; PULSE 86–99; RESP 16–18; O2SAT 96
[2023-07-20 06:13] LABS: BASOPHILS # (AUTO) 0.05 K/uL (0.00-0.20); BASOPHILS % (AUTO) 0.6 % (0.0-5.0); EOSINOPHILS # (AUTO) 0.18 K/uL (0.00-0.70); EOSINOPHILS % (AUTO) 2.1 % (0.0-8.0); HEMATOCRIT 27.9 % (36-48); IMMATURE GRANULOCYTE ABSOLUTE 0.05 K/uL (0-1); LYMPHOCYTES # (AUTO) 1.5 K/uL (1.0-4.8); LYMPHOCYTES % (AUTO) 17.5 % (21.0-51.0); MEAN CORPUSCULAR HEMOGLOBIN 20.2 pg (27.0-33.0); MEAN CORPUSCULAR HGB CONC 28.7 g/dL (32.0-36.0); MEAN CORPUSCULAR VOLUME 70.3 fL (79-99); MONOCYTES # (AUTO) 0.3 K/uL (0.1-1.0); MONOCYTES % (AUTO) 3.5 % (3.0-13.0); NEUTROPHILS # (AUTO) 6.4 K/uL (1.8-7.7); NEUTROPHILS % (AUTO) 75.7 % (40.0-77.0); NUCLEATED RED BLOOD CELLS 0.2 % (0.0-0.19); PLATELET COUNT (AUTO) 403 K/uL (130-400); RED BLOOD CELL COUNT(AUTO) 3.97 MIL/uL (4.00-5.50); RED CELL DISTRIBUTION WIDTH 26.7 % (11.0-15.5); WHITE BLOOD COUNT (AUTO) 8.5 K/uL (4.8-10.8)
[2023-07-20 06:43] LABS: % IRON SATURATION 93.1 % (22-44)
[2023-07-20 06:55] LABS: ALBUMIN 2.9 g/dL (3.5-5.0); BILIRUBIN,TOTAL 0.3 mg/dL (0.2-1.0); CREATININE 0.9 mg/dL (0.5-1.5); POTASSIUM 3.1 mmol/L (3.5-5.1); THYROID STIMULATING HORMONE 0.37 uIU/mL (0.36-3.74); TOTAL PROTEIN, SERUM 6.6 g/dL (6.0-8.3)
[2023-07-20] MEDS ORDERED: PROPOFOL 10 MG/ML 20ML VIAL IV ONE ×2 (08:00→08:05)
[2023-07-20] MEDS ORDERED: HYDROCHLOROTHIAZIDE 25 MG TABLET PO SCH (09:00)
[2023-07-20] MEDS: CEFTRIAXONE 1G VIAL IVPB SCH (09:59)
[2023-07-20] MEDS: PANTOPRAZOLE 40 MG/VIAL IVP SCH (09:59)
[2023-07-20] MEDS: POTASSIUM CHLORIDE 10% ELIXIR 20 MEQ/15 ML UDCUP PO PRN ×3 (10:15→18:25)
[2023-07-20] MEDS ORDERED: CEPH500B PO (15:51)
== END 2023-07-20 18:50 | disposition home or self-care (01) | DRG 393 ==
LOC: EDH 17:04 → EDHIP 17:05 → 3CH 07-18 08:59
PROVIDERS: ADMIT Hospitalist; ATTEND Hospitalist
PROC: 30233N1 Transfusion of Nonautologous Red Blood Cells into Peripheral Vein, Percutaneous Approach (ICD-10-PCS; 2023-07-17)
PROC: 0DB98ZX Excision of Duodenum, Via Natural or Artificial Opening Endoscopic, Diagnostic (ICD-10-PCS; principal; 2023-07-19)
PROC: 0DB68ZX Excision of Stomach, Via Natural or Artificial Opening Endoscopic, Diagnostic (ICD-10-PCS; 2023-07-19)
PROC: 0DBQ8ZX Excision of Anus, Via Natural or Artificial Opening Endoscopic, Diagnostic (ICD-10-PCS; 2023-07-20)
DX: K64.8 Other hemorrhoids (principal); K29.71 Gastritis, unspecified, with bleeding; D62 Acute posthemorrhagic anemia; N17.9 Acute kidney failure, unspecified; N39.0 Urinary tract infection, site not specified; K92.1 Melena; D75.839 Thrombocytosis, unspecified; E87.6 Hypokalemia; N18.9 Chronic kidney disease, unspecified; K59.09 Other constipation; F32.A Depression, unspecified; K64.4 Residual hemorrhoidal skin tags; Z82.5 Family history of asthma and other chronic lower respiratory diseases; Z83.3 Family history of diabetes mellitus; Z98.51 Tubal ligation status
CPT/HCPCS: 36415; 43239; 45380; 71045; 76856; 80053; 80305; 81001; 81025; 82088; 82270; 82436; 82570; 82607; 82728; 82746; 83540; 83550; 83605; 83735; 83935; 84132; 84133; 84145; 84244; 84300; 84443; 84484; 85007; 85025; 85027; 85045; 85610; 85730; 86850; 86900; 86901; 86923; 87077; 87088; 87186; 93005; C9113; G0378; J0696; J1756; J2704; J3475; J3480; J7030; J7050; P9016; A4215; A4216; A4222; A4223; A4620; A7002; J3490